=== PATIENT | male | born 1955 | race African-American/Black ===

== ENCOUNTER 2016-12-28 13:11 | Emergency (ER) | payer OTHER ==
[~2016-12-28] VITALS: Ht 175.3 cm; Wt 63.6 kg
[~2016-12-28 13:11] MED LIST: CITA20TA17 PO; DIPH50 PO; LEVE750T4 PO; PHEN100C23 PO; RISP2TAB4 PO
[2016-12-28 14:55] VITALS: BP 132/68
[2016-12-28] MEDS ORDERED: LevETIRAcetam 500 MG TABLET PO ONE (15:00)
[2016-12-28] MEDS ORDERED: KETOROLAC TROMETHAMINE 30 MG/ML VIAL IM ONE (15:00)
== END 2016-12-28 15:03 | disposition home or self-care (01) ==
LOC: EMS 13:12
DX: M19.90 Unspecified osteoarthritis, unspecified site (principal); M25.552 Pain in left hip; G40.909 Epilepsy, unspecified, not intractable, without status epilepticus; G89.29 Other chronic pain; F17.210 Nicotine dependence, cigarettes, uncomplicated
CPT/HCPCS: 99283